=== PATIENT | female | born 1950 | race Two or more races ===

== ENCOUNTER → 2025-01-01 | Outpatient (CLI) | payer MEDICARE, MEDICAID, SELFPAY ==
[2025-01-01 12:00] LABS: Collection Type, Urine Clean Catch
[2025-01-01 12:26] LABS: Basophils % (Auto) 1 % (0-2.5); Eosinophils # (Auto) 0.2 Thou/mm3 (0.0-0.5); Eosinophils % (Auto) 4 % (0-10); Hematocrit 30.3 % (36.0-46.0); Hemoglobin 10.1 g/dL (12.0-16.0); Immature Granulocytes % (Auto) 0 % (0-0); Immature Granulocytes Auto 0.02 Thou/mm3 (0.00-0.00); Lymphocytes # (Auto) 1.3 Thou/mm3 (1.0-4.8); Lymphocytes % (Auto) 21 % (10-50); Mean Corpuscular HGB Conc 33.3 g/dl (31.0-37.0); Mean Corpuscular Volume 93 fL (80-100); Monocytes # (Auto) 0.6 Thou/mm3 (0.0-0.8); Monocytes % (Auto) 10 % (0-12); Neutrophils # (Auto) 3.9 Thou/mm3 (1.8-7.7); Neutrophils % (Auto) 64 % (37-80); Nucleated Red Blood Cell % 0 /100 WBC (0); Platelet Count 208 Thou/mm3 (140-440); RDW Standard Deviation 45.7 fL (36.4-46.3); Red Blood Count 3.26 Miln/mm3 (4.00-5.20); White Blood Count 6.1 Thou/mm3 (3.6-11.0)
[2025-01-01 12:34] LABS: Bilirubin,Urine Negative (Negative); Blood,Urine Negative (Negative); Clarity,Urine Clear (Clear/Hazy); Color,Urine Lt-Yellow (Lt Yel-Yel); Glucose, Urine Negative (Negative); Hyaline Casts,Urine < 1 /hpf (0-1); Ketones,Urine Negative (Negative); Leukocyte Esterase,Urine Negative (Negative); Nitrite,Urine Negative (Negative); PH,Urine 6.5 (5.0-7.0); Protein,Urine 2+ (Neg - Trace); RBC,Urine 1 /hpf (0-3); Specific Gravity,Urine 1.011 (1.001-1.035); Squamous Epithelial Cell,Urine 1 /hpf (0-5); Urobilinogen,Urine Negative mg/dL (0.0-1.0); WBC,Urine 1 /hpf (0-5)
[2025-01-01 12:36] LABS: Parathyroid Hormone Intact 84.5 pg/ml (18.5-88.0)
[2025-01-01 12:47] LABS: Alanine Aminotransferase 16 U/L (10-49); Albumin, Serum 3.9 gm/dL (3.4-4.8); Albumin/Globulin Ratio 1.5 (1.2-2.2); Alkaline Phosphatase 101 U/L (46-116); Anion Gap 9 (7-16); Aspartate Amino Transferase 27 U/L (0-34); BUN/Creatinine Ratio 24 Ratio (12-20); Bilirubin,Total 0.3 mg/dL (0.3-1.2); Blood Urea Nitrogen 66 mg/dL (9-23); Calcium 9.6 mg/dL (8.3-10.6); Calcium (Corrected) 9.7 mg/dL (8.5-10.1); Carbon Dioxide 29.7 mMol/L (20.0-31.0); Cardiac Risk Estimate 5.3 RATIO (3.7-5.6); Chloride 101 mMol/L (98-107); Cholesterol 189 mg/dL (132-200); Creatinine (Component) 2.7 mg/dL (0.6-1.3); Globulin 2.6 gm/dL (2.3-3.5); HDL Cholesterol 36 mg/dL (40-60); LDL Cholesterol,Calculated 118 mg/dL (0-130); Osmolality,Calculated 295 (275-295); Sodium 140 mMol/L (136-145); Thyroid Stimulating Hormone 0.55 uIU/mL (0.55-4.78); Total Protein 6.5 gm/dL (5.7-8.2); Triglycerides 173 mg/dL (30-150); eGFR 18 See Note
[2025-01-01 12:48] LABS: Glucose 47 mg/dL (74-106)
[2025-01-01 12:52] LABS: Creatinine MALB Rnd Ur 51 mg/dL (30-125); Microalbumin Creat Ratio 745 mg/gCrea (<30); Microalbumin, Random Urine > 380 mg/L (0-300)
[2025-01-01 12:57] LABS: Glucose Estimated Average 114 mg/dL (80-131); Hemoglobin A1C 5.6 % Hgb (4.8-6.0)
[2025-01-01 16:38] LABS: Vitamin D 25 Hydroxy Total 42.1 ng/mL (7.3-40.2)
== END | disposition home or self-care (01) ==
LOC: COPL 10:40
PROVIDERS: PCP Internal Medicine; Referring Provider Internal Medicine; Visit Provider Internal Medicine
DX: E11.22 Type 2 diabetes mellitus with diabetic chronic kidney disease (principal); I12.9 Hypertensive chronic kidney disease with stage 1 through stage 4 chronic kidney disease, or unspecified chronic kidney disease; E55.9 Vitamin D deficiency, unspecified; E78.5 Hyperlipidemia, unspecified; N18.4 Chronic kidney disease, stage 4 (severe)
CPT/HCPCS: 36415; 80053; 80061; 81001; 82043; 82306; 82570; 83036; 83970; 84443; 85025

== ENCOUNTER → 2025-03-21 | Outpatient (CLI) | payer MEDICARE, MEDICAID, SELFPAY ==
[2025-03-21 09:54] LABS: Collection Type, Urine Clean Catch
[2025-03-21 10:12] LABS: Basophils # (Auto) 0.1 Thou/mm3 (0.0-0.2); Basophils % (Auto) 1 % (0-2.5); Eosinophils # (Auto) 0.2 Thou/mm3 (0.0-0.5); Eosinophils % (Auto) 2 % (0-10); Hematocrit 20.9 % (36.0-46.0); Immature Granulocytes % (Auto) 0 % (0-0); Immature Granulocytes Auto 0.02 Thou/mm3 (0.00-0.00); Lymphocytes # (Auto) 0.6 Thou/mm3 (1.0-4.8); Lymphocytes % (Auto) 8 % (10-50); Mean Corpuscular Hemoglobin 30.5 pg (25.0-35.0); Mean Corpuscular Volume 90 fL (80-100); Monocytes # (Auto) 0.7 Thou/mm3 (0.0-0.8); Monocytes % (Auto) 9 % (0-12); Neutrophils # (Auto) 6.3 Thou/mm3 (1.8-7.7); Neutrophils % (Auto) 81 % (37-80); Nucleated Red Blood Cell % 0 /100 WBC (0); Platelet Count 285 Thou/mm3 (140-440); RDW Standard Deviation 41.1 fL (36.4-46.3); Red Blood Count 2.33 Miln/mm3 (4.00-5.20); White Blood Count 7.8 Thou/mm3 (3.6-11.0)
[2025-03-21 10:23] LABS: Parathyroid Hormone Intact 115.8 pg/ml (18.5-88.0)
[2025-03-21 10:25] LABS: Bacteria,Urine Rare; Bilirubin,Urine Negative (Negative); Blood,Urine Negative (Negative); Clarity,Urine Clear (Clear/Hazy); Color,Urine Lt-Yellow (Lt Yel-Yel); Glucose, Urine Negative (Negative); Ketones,Urine Negative (Negative); Leukocyte Esterase,Urine Positive (Negative); Nitrite,Urine Negative (Negative); PH,Urine 6.5 (5.0-7.0); Protein,Urine 2+ (Neg - Trace); RBC,Urine 2 /hpf (0-3); Specific Gravity,Urine 1.009 (1.001-1.035); Squamous Epithelial Cell,Urine 1 /hpf (0-5); Urobilinogen,Urine Negative mg/dL (0.0-1.0); WBC,Urine 2 /hpf (0-5)
[2025-03-21 10:27] LABS: Creatinine MALB Rnd Ur 41 mg/dL (30-125)
[2025-03-21 10:29] LABS: Albumin, Serum 3.8 gm/dL (3.4-4.8); Anion Gap 13 (7-16); BUN/Creatinine Ratio 27 Ratio (12-20); Blood Urea Nitrogen 62 mg/dL (9-23); Calcium 8.5 mg/dL (8.3-10.6); Calcium (Corrected) 8.7 mg/dL (8.5-10.1); Carbon Dioxide 26.1 mMol/L (20.0-31.0); Cardiac Risk Estimate 4.3 RATIO (3.7-5.6); Chloride 97 mMol/L (98-107); Cholesterol 121 mg/dL (132-200); Creatinine (Component) 2.3 mg/dL (0.6-1.3); Glucose 56 mg/dL (74-106); HDL Cholesterol 28 mg/dL (40-60); LDL Cholesterol,Calculated 77 mg/dL (0-130); Osmolality,Calculated 287 (275-295); Phosphorous 3.8 mg/dL (2.4-5.1); Potassium 4.5 mMol/L (3.4-5.1); Sodium 136 mMol/L (136-145); Thyroid Stimulating Hormone 0.25 uIU/mL (0.55-4.78); Triglycerides 80 mg/dL (30-150); eGFR 22 See Note
[2025-03-21 10:32] LABS: Hemoglobin 7.1 g/dL (12.0-16.0)
[2025-03-21 10:39] LABS: Microalbumin Creat Ratio 1968 mg/gCrea (<30); Microalbumin, Random Urine 807 mg/L (0-300)
[2025-03-21 10:41] LABS: Glucose Estimated Average 123 mg/dL (80-131); Hemoglobin A1C 5.9 % Hgb (4.8-6.0)
== END | disposition home or self-care (01) ==
LOC: COPL 09:23
PROVIDERS: PCP Internal Medicine; Referring Provider Internal Medicine; Visit Provider Internal Medicine
DX: I12.9 Hypertensive chronic kidney disease with stage 1 through stage 4 chronic kidney disease, or unspecified chronic kidney disease (principal); E11.22 Type 2 diabetes mellitus with diabetic chronic kidney disease; N18.4 Chronic kidney disease, stage 4 (severe)
CPT/HCPCS: 36415; 80061; 80069; 81001; 82043; 82570; 83036; 83970; 84443; 85025

== ENCOUNTER 2025-03-27 16:27 | Emergency (ER) | payer MEDICARE, MEDICAID, SELFPAY ==
[2025-03-27 16:45] VITALS: BP 136/73; PULSE 94; RESP 20; TEMP 36.9; O2SAT 97; BMI 34.9
--- NOTE | 2025-03-27 16:59 | PD.EDRME ---
Rapid Medical Screening Exam RME Arrival date/time: 03/27/25 16:27 Chief Complaint: General Adult/Misc Complain Time Seen by Provider: 03/27/25 16:56 Vital signs: Vital Signs Temperature 98.4 F 03/27/25 16:45 Pulse Rate 94 03/27/25 16:45 Respiratory Rate 20 03/27/25 16:45 Blood Pressure 136/73 H 03/27/25 16:45 Pulse Oximetry (%) 97 03/27/25 16:45 Oxygen Delivery Method Room Air 03/27/25 16:45 Pulse ox room air 97% Vital signs reviewed by provider: Yes RME Narrative: Patient sent by primary care physician for a blood transfusion. Family member tells me the patient has been feeling lethargic and tired with no energy.
[2025-03-27 17:52] LABS: Basophils # (Auto) 0.1 Thou/mm3 (0.0-0.2); Basophils % (Auto) 1 % (0-2.5); Eosinophils # (Auto) 0.2 Thou/mm3 (0.0-0.5); Eosinophils % (Auto) 3 % (0-10); Immature Granulocytes % (Auto) 0 % (0-0); Immature Granulocytes Auto 0.02 Thou/mm3 (0.00-0.00); Lymphocytes # (Auto) 0.7 Thou/mm3 (1.0-4.8); Monocytes % (Auto) 8 % (0-12); Nucleated Red Blood Cell % 0 /100 WBC (0)
[2025-03-27 17:59] LABS: Hematocrit 28.8 % (36.0-46.0); Lymphocytes % (Auto) 11 % (10-50); Mean Corpuscular HGB Conc 32.6 g/dl (31.0-37.0); Mean Corpuscular Hemoglobin 30.9 pg (25.0-35.0); Mean Corpuscular Volume 95 fL (80-100); Monocytes # (Auto) 0.5 Thou/mm3 (0.0-0.8); Neutrophils # (Auto) 4.4 Thou/mm3 (1.8-7.7); Neutrophils % (Auto) 77 % (37-80); Platelet Count 247 Thou/mm3 (140-440); RDW Standard Deviation 45.1 fL (36.4-46.3); Red Blood Count 3.04 Miln/mm3 (4.00-5.20); White Blood Count 5.8 Thou/mm3 (3.6-11.0)
[2025-03-27 18:05] LABS: Hemoglobin 9.4 g/dL (12.0-16.0)
[2025-03-27 18:06] LABS: INR 1.1 (0.9-1.3); Partial Thromboplastin Time 24.5 Seconds (22.0-36.0); Prothrombin Time 12.4 Seconds (9.0-12.2)
[2025-03-27 18:09] LABS: Alanine Aminotransferase 26 U/L (10-49); Albumin, Serum 3.8 gm/dL (3.4-4.8); Albumin/Globulin Ratio 1.4 (1.2-2.2); Alkaline Phosphatase 150 U/L (46-116); Anion Gap 11 (7-16); BUN/Creatinine Ratio 28 Ratio (12-20); Bilirubin,Total 0.4 mg/dL (0.3-1.2); Blood Urea Nitrogen 66 mg/dL (9-23); Calcium 8.8 mg/dL (8.3-10.6); Carbon Dioxide 22.6 mMol/L (20.0-31.0); Chloride 98 mMol/L (98-107); Creatinine (Component) 2.4 mg/dL (0.6-1.3); Estimated Creatinine Clearance 18.1 mL/min (>60); Globulin 2.7 gm/dL (2.3-3.5); Glucose 157 mg/dL (74-106); Osmolality,Calculated 286 (275-295); Potassium 4.7 mMol/L (3.4-5.1); Sodium 132 mMol/L (136-145); Total Protein 6.5 gm/dL (5.7-8.2); eGFR 21 See Note
--- NOTE | 2025-03-27 19:28 | EDNOTE_ITS ---
<Statement entered by Amie Subramanian MD - 03/29/25 18:30> As co-signing physician, I was present and available for consult prn. I concur with the plan and care as documented by the midlevel provider. ED General RME/HPI General Chief complaint: General Adult/Misc Complain Stated complaint: SENT BY DR. ASHTON FOR BLOOD TRANSFUSION Time Seen by Provider: 03/27/25 16:56 Arrival date/time: 03/27/25 16:27 RME / HPI RME / HPI narrative: 75-year-old female patient came in for evaluation regarding possible blood transfusion. Patient was seen by her hall manager for possible blood transfusion, 6 days ago patient's hemoglobin was noted to be 7.1 and now patient is complaining of generalized body weakness. Currently taking iron supplements. She is not on any dialysis. Denies any bleeding bleeding. No vomiting blood Related Data Allergies Allergy/AdvReac Type Severity Reaction Status Date / Time amoxicillin Allergy Mild Verified 03/27/25 17:34 morphine Allergy Mild Verified 03/27/25 17:34 Penicillins Allergy Mild Verified 03/27/25 17:34 Review of Systems Review of Systems Narrative Review of Systems: Review of system reviewed and within normal limits except mentioned in HPI ED Exam Narrative Physical exam: VITAL SIGNS: Reviewed. GENERAL APPEARANCE: Alert and interactive, follows commands, no acute distress, HEAD AND FACE: Non-traumatic. ENT: PERRL, pale conjunctiva, eyelid no trauma, Mucous membrane moist. NECK: Supple, nontender, no nuchal rigidity. CHEST: No tenderness, no crepitus, no paradoxical movement, no retractions. LUNGS: Clear, well ventilated, symmetric, no rales, no wheezing, no ronchi, no stridor, good breath sounds bilaterally. HEART: Regular rate, regular rhythm, no murmur, no gallops. ABDOMEN: Soft, positive bowel sounds, nondistended, no guarding, nontender, no rebound, no masses, RECTAL: Deferred. GENITAL: Deferred. NEUROLOGICAL: Gross motor function intact sensory function intact, Appropriate f or age. MUSCULOSKELETAL: low back nontender, full range of motion. EXTREMITIES: Nontender, full range of motion. SKIN: Color pale, dry, no rash, no lacerations, no abrasions, no contusions. LYMPHATICS: Deferred. Course Quality Measures none Orders Category Date Time Status CBC Stat Lab 03/27/25 17:38 Completed Comprehensive Metabolic Panel Stat Lab 03/27/25 17:38 Completed PT [Prothrombin Time with INR] Stat Lab 03/27/25 17:38 Completed PTT [Partial Thromboplastin Time] Stat Lab 03/27/25 17:38 Completed Type and Screen Stat Lab 03/27/25 17:38 Received Vital Signs Vital signs: Vital Signs Temperature 98.4 F 03/27/25 16:45 Pulse Rate 94 03/27/25 16:45 Respiratory Rate 20 03/27/25 16:45 Blood Pressure 136/73 H 03/27/25 16:45 Pulse Oximetry (%) 97 03/27/25 16:45 Oxygen Delivery Method Room Air 03/27/25 16:45 Discharge Plan Plan Patient Disposition: HOME (Self Care) Discharge Disposition comment: Stable Prescriptions/Referrals Referrals: Nuvia Ashton MD [Primary Care Provider] - In 1 week Problem List Clinical Impression: Anemia, CKD (chronic kidney disease) Patient/Caregiver Discharge Instructions Discharge Activity: activity as tolerated Education Materials: Anemia Additional Instructions: Thank you for the opportunity for serving you today. You are stable for discha rged . You are advised to: Follow-up with your hall manager in 1 to 2 days Return to ED for worsening of symptoms Print Language: [place] Stand Alone Forms: Ananya Award Info., Patient Portal Info Letter PA/HOSIERY MENDER Supervising Physician PA/RAFAEL Supervising Physician: MD Moris [facility] Narrative [facility] hospital course: 75-year-old female patient came in for evaluation regarding possible blood transfusion. Patient was seen by her hall manager for possible blood transfusion, 6 days ago patient's hemoglobin was noted to be 7.1 and now patient is complaining of generalized body weakness. Currently taking iron supplements. She is not on any dialysis. Denies any bleeding bleeding. No vomiting blood Patient's hemoglobin today was noted to be 9.4 creatinine 2.4, BUN of 66. GFR 22. Results discussed with the patient. I also called Dr. Ashton, patient's hall manager, who told me to asked the patient to follow-up with the clinic next week and no need for transfusion today Lab Interpretation Lab(s) interpretation(s): See results MDM Diagnosis Differential diagnosis: Anemia, generalized weakness, chronic kidney disease Differential dx and/or dx ruled out: Anemia Most likely dx, and/or detailed dx discussion: Anemia, generalized weakness chronic/kidney disease
== END 2025-03-27 19:43 | disposition home or self-care (01) ==
PROVIDERS: Physician Assistant; Emergency Provider Emergency Medicine; PCP Internal Medicine
DX: N18.9 Chronic kidney disease, unspecified (principal); D63.1 Anemia in chronic kidney disease
CPT/HCPCS: 36415; 80053; 85025; 85610; 85730; 86850; 86900; 86901; 99283

== ENCOUNTER → 2025-05-14 | Outpatient (CLI) | payer MEDICARE, MEDICAID, SELFPAY ==
[2025-05-14 09:48] LABS: Collection Type, Urine Clean Catch
[2025-05-14 10:05] LABS: Basophils # (Auto) 0.0 Thou/mm3 (0.0-0.2); Basophils % (Auto) 0 % (0-2.5); Eosinophils # (Auto) 0.3 Thou/mm3 (0.0-0.5); Eosinophils % (Auto) 4 % (0-10); Hematocrit 27.4 % (36.0-46.0); Immature Granulocytes Auto 0.02 Thou/mm3 (0.00-0.00); Lymphocytes # (Auto) 1.2 Thou/mm3 (1.0-4.8); Lymphocytes % (Auto) 14 % (10-50); Mean Corpuscular HGB Conc 32.1 g/dl (31.0-37.0); Mean Corpuscular Hemoglobin 29.7 pg (25.0-35.0); Mean Corpuscular Volume 93 fL (80-100); Monocytes # (Auto) 0.9 Thou/mm3 (0.0-0.8); Monocytes % (Auto) 10 % (0-12); Neutrophils # (Auto) 6.1 Thou/mm3 (1.8-7.7); Neutrophils % (Auto) 72 % (37-80); Nucleated Red Blood Cell # 0.00 Thou/mm3 (0.00-0.00); Nucleated Red Blood Cell % 0 /100 WBC (0); Platelet Count 198 Thou/mm3 (140-440); RDW Standard Deviation 52.3 fL (36.4-46.3); Red Blood Count 2.96 Miln/mm3 (4.00-5.20); White Blood Count 8.5 Thou/mm3 (3.6-11.0)
[2025-05-14 10:16] LABS: Hemoglobin 8.8 g/dL (12.0-16.0)
[2025-05-14 10:17] LABS: Glucose Estimated Average 140 mg/dL (80-131); Hemoglobin A1C 6.5 % Hgb (4.8-6.0)
[2025-05-14 10:18] LABS: Parathyroid Hormone Intact 145.4 pg/ml (18.5-88.0)
[2025-05-14 10:20] LABS: Albumin, Serum 4.2 gm/dL (3.4-4.8); Anion Gap 10 (7-16); BUN/Creatinine Ratio 31 Ratio (12-20); Blood Urea Nitrogen 72 mg/dL (9-23); Calcium 9.8 mg/dL (8.3-10.6); Calcium (Corrected) 9.8 mg/dL (8.5-10.1); Carbon Dioxide 27.9 mMol/L (20.0-31.0); Chloride 99 mMol/L (98-107); Creatinine (Component) 2.3 mg/dL (0.6-1.3); Glucose 65 mg/dL (74-106); Osmolality,Calculated 293 (275-295); Phosphorous 4.1 mg/dL (2.4-5.1); Potassium 4.1 mMol/L (3.4-5.1); Sodium 137 mMol/L (136-145); eGFR 22 See Note
[2025-05-14 10:21] LABS: Bacteria,Urine Rare; Bilirubin,Urine Negative (Negative); Blood,Urine 3+ (Negative); Clarity,Urine Clear (Clear/Hazy); Color,Urine Lt-Yellow (Lt Yel-Yel); Glucose, Urine 3+ (Negative); Hyaline Casts,Urine < 1 /hpf (0-1); Ketones,Urine Negative (Negative); Leukocyte Esterase,Urine Positive (Negative); Nitrite,Urine Negative (Negative); PH,Urine 6.0 (5.0-7.0); Protein,Urine 2+ (Neg - Trace); RBC,Urine 3 /hpf (0-3); Specific Gravity,Urine 1.011 (1.001-1.035); Squamous Epithelial Cell,Urine 6 /hpf (0-5); Urobilinogen,Urine Negative mg/dL (0.0-1.0); WBC,Urine 9 /hpf (0-5)
[2025-05-14 10:30] LABS: Creatinine,Random Urine 47 mg/dL (30-125)
== END | disposition home or self-care (01) ==
PROVIDERS: PCP Internal Medicine; Referring Provider Internal Medicine; Visit Provider Internal Medicine
DX: I12.9 Hypertensive chronic kidney disease with stage 1 through stage 4 chronic kidney disease, or unspecified chronic kidney disease (principal); E11.22 Type 2 diabetes mellitus with diabetic chronic kidney disease; N18.4 Chronic kidney disease, stage 4 (severe)
CPT/HCPCS: 36415; 80069; 81001; 82570; 83036; 83970; 85025